=== PATIENT | male | born 1940 | race Caucasian/White ===

== ENCOUNTER → 2017-01-11 | Outpatient (CLI) | payer OTHER ==
--- NOTE | 2017-01-11 09:27 | MR ---
MRI of the Right Shoulder History: Severe shoulder pain. Technique: Axial proton density, oblique coronal, and sagittal T1 and T2 images were acquired. Findings: The supraspinatus tendon is completely torn distally and retracted to the subacromial space . There is moderate fatty atrophy of supraspinatus muscle. The subscapularis tendon is also completely torn and retracted, with moderate to advanced fatty atrop hy of subscapularis muscle. The long head biceps tendon is subluxed out of the bicipital groove into the anterior shoulder joint through the subscapularis defect. This tendon demonstrates marked thickening and tendinosis through t he intra-articular aspect. The superior labral attachment is also diseased with focal tendinopathy an d maceration with partial tear of the superior labrum at the biceps anchor. More posteriorly, fusiform infraspinatus tendinosis and fraying is present, without full-thickness de fect. Teres minor is intact. In addition to superior labral maceration, there is moderate chondral thinning along the superior asp ect of the humeral head and glenoid articular surface. There is also undercutting of the inferior lab rum from the 5 through 7 o'clock positions compatible with nondisplaced tear. No additional labral te ar identified. The acromioclavicular joint is moderately hypertrophic, without joint effusion or bone marrow edema. Impression: 1. Complete tear of the supraspinatus tendon with retraction and moderate muscular atrophy. 2. Complete tear of the subscapularis tendon with retraction and severe muscular atrophy. There is he rniation of a diseased long head biceps tendon through the subscapularis defect into the anterior garry ulder joint. 3. Fusiform infraspinatus tendinosis without full-thickness tear. 4. Degenerative maceration and fraying superior labrum. There is also a nondisplaced tear of the infe rior labrum from the 5 through 7 o'clock positions.
== END ==
LOC: FIMAGING 06:51
PROVIDERS: ATTEND Orthopaedic Surgery Sports Medicine
DX: M75.121 Complete rotator cuff tear or rupture of right shoulder, not specified as traumatic (principal); M25.511 Pain in right shoulder; M25.811 Other specified joint disorders, right shoulder

== ENCOUNTER → 2017-07-06 | Outpatient (CLI) | payer OTHER | LOC: FCPNEURO 23:06 | PROVIDERS: ATTEND Psychiatry & Neurology Sleep Medicine | DX: G47.33 Obstructive sleep apnea (adult) (pediatric) (principal); G47.31 Primary central sleep apnea ==

== ENCOUNTER → 2017-10-09 | Outpatient (CLI) | payer OTHER | LOC: FCPNEURO 20:00 | PROVIDERS: ATTEND Psychiatry & Neurology Sleep Medicine | DX: G47.31 Primary central sleep apnea (principal); G47.61 Periodic limb movement disorder ==

== ENCOUNTER → 2018-03-17 | Outpatient (CLI) | payer OTHER | LOC: FIMAGING 11:03 | PROVIDERS: ATTEND Orthopaedic Surgery | DX: Z01.818 Encounter for other preprocedural examination (principal); M17.11 Unilateral primary osteoarthritis, right knee ==

== ENCOUNTER 2018-04-06 09:30 | Observation (INO) | payer OTHER ==
--- NOTE | 2018-04-06 07:14 | PDHPUP ---
History & Physical Update H&P update statement: This history and physical update is based on an assessment of the patient which was completed after admission or registration (within 24 hours), but prior to the surgery/procedure. H&P update: H&P reviewed & patient examined, no change in patient's condition since H&P completed
[~2018-04-06 09:30] MED LIST: ROPIVACAINE 0.2% 80 MG, EPINEPHrine 0.2 MG, KETOROLAC TROMETHAMINE 30 MG in SYRINGE 0 ML IU ONE; TRANEXAMIC ACID 3,000 MG in NS (SYRINGE) 50 ML IRR ONE
[2018-04-06] MEDS ORDERED: TRANEXAMIC ACID 3,000 MG/50 ML BAG IRR ONE (09:53)
[2018-04-06] MEDS ORDERED: DEXAMETHASONE 4 MG/ML VIAL IVP ONE (11:04)
[2018-04-06] MEDS ORDERED: FAMOTIDINE 20 MG TAB PO ONE (11:04)
[2018-04-06] MEDS ORDERED: ceFAZolin 2 GM/SWFI 2 GM/20 ML SYR IVP ONE (11:04)
[2018-04-06] MEDS ORDERED: ACETAMINOPHEN 325 MG TAB PO ONE (11:04)
[2018-04-06] MEDS ORDERED: LIDOCAINE 1% 2 ML INJ ID PRN (11:05)
[2018-04-06] MEDS ORDERED: LR 1,000 ML IV ONE (11:05)
[2018-04-06] MEDS ORDERED: MIDAZOLAM 2 MG/2 ML VIAL IVP ONE ×2 (11:19→13:03)
--- NOTE | 2018-04-06 13:04 | PDANEPAE ---
ANE Past Medical History - Cardiovascular History Hx Hypertension: Yes Hx Arrhythmias: No Hx Chest Pain: No Hx Coronary Artery / Peripheral Vascular Disease: No Hx CHF / Valvular Disease: No Hx Palpitations: No - Pulmonary History Hx COPD: No Hx Asthma/Reactive Airway Disease: No Hx Recent Upper Respiratory Infection: No Hx Oxygen in Use at Home: No Hx Sleep Apnea: No Sleep Apnea Screening Result - Last Documented: Positive - Neurologic History Hx Cerebrovascular Accident: No Hx Seizures: No Hx Dementia: No - Endocrine History Hx Diabetes: No - Renal History Hx Renal Disorders: No - Liver History Hx Hepatic Disorders: No - Neurological & Psychiatric Hx Hx Neurological and Psychiatric Disorders: No - Cancer History Hx Cancer: No - Congenital Disorder History Hx Congenital Disorders: No - GI History Hx Gastrointestinal Disorders: Yes Gastrointestinal History Comment: DIVERTICULITIS - Other Health History Other Health History: NEG - Chronic Pain History Chronic Pain: No - Surgical History Prior Surgeries: L ADÁN. NEREIDA SHOULDER. NEREIDA KNEES ANE Review of Systems Review of Systems: - Exercise capacity METS (RN): 4 METS ANE Patient History - Allergies Allergies/Adverse Reactions: Penicillins Allergy (Verified 07/15/16 09:31) Hives - Home Medications Home Medications: Lisinopril [Zestril 40 mg (*)] 40 mg PO DAILY18 05/15/13 [Last Taken 04/05/18 18 :00] Multivitamins [Multivitamin (*)] 1 each PO DAILY 05/15/13 [Last Taken 2 Weeks Ago ~03/23/18] Rosuvastatin Calcium [Crestor 20mg (*)] 20 mg PO DAILY18 05/15/13 [Last Taken 18:00] Cholecalciferol Vit D3 [Vitamin D3 (*)] 6,000 units PO DAILY 06/18/16 [Last Taken 2 Weeks Ago ~03/23/18] Aspirin EC [Aspirin EC 81 mg (*)] 162 mg PO DAILY 03/09/18 [Last Taken 1 Week Ago ~03/30/18] [place]-3 Fatty Acids [Fish Oil 1000 mg (*)] 1,000 mg PO DAILY 03/09/18 [Last Taken 2 Weeks Ago ~03/23/18] amLODIPine BESYLATE [Norvasc 2.5 mg (*)] 2.5 mg PO DAILY 03/09/18 [Last Taken 06:30] - NPO status NPO Since - Liquids (Date): 04/06/18 NPO Since - Liquids (Time): 09:30 NPO Since - Solids (Date): 04/05/18 NPO Since - Solids (Time): 18:30 - Anes Hx Anes Hx: no prior problems - Smoking Hx Smoking Status: Former smoker - Family Anes Hx Family Hx Anesthesia Complications: NEG ANE Labs/Vital Signs - Vital Signs Blood Pressure: 134/50 Heart Rate: 48 Respiratory Rate: 12 O2 Sat (%): 96 Height: 177.8 cm Weight: 83.915 kg ANE Physical Exam - Airway Mallampati Score: Class 2 Mouth exam: normal dental/mouth exam - Pulmonary Pulmonary: no respiratory distress, no rales or rhonchi, clear to auscultation - Cardiovascular Cardiovascular: regular rate and rhythym, no murmur, rub, or gallop - ASA Status ASA Status: II ANE Anesthesia Plan Anesthesia Plan: spinal Regional Anesthesia: adductor canal FNB
[2018-04-06] MEDS ORDERED: BUPIVACAINE 0.25% 30 ML SDV ONE (13:17)
[2018-04-06] MEDS ORDERED: PROPOFOL 200 MG/20 ML VIAL ONE ×2 (13:18→14:03)
[2018-04-06] MEDS ORDERED: fentaNYL 100 MCG/2 ML INJ ONE (13:18)
[2018-04-06] MEDS ORDERED: DEXAMETHASONE 4 MG/ML VIAL ONE ×2 (13:19)
[2018-04-06] MEDS ORDERED: epHEDrine SULFATE 10 MG/ML SYR ONE (13:42)
[2018-04-06] MEDS ORDERED: PHENYLEPHRINE HCL 100 MCG/ML SYR ONE (13:43)
[2018-04-06] MEDS ORDERED: GLYCOPYRROLATE 0.2 MG/1 ML VIAL ONE ×2 (13:45→13:49)
[2018-04-06] MEDS ORDERED: ACETAMINOPHEN 500 MG TAB PO PRN (14:06)
[2018-04-06] MEDS ORDERED: LR 500 ML IV PRN (14:06)
[2018-04-06] MEDS ORDERED: oxyCODONE IR 5 MG TAB PO PRN (14:06)
[2018-04-06] MEDS ORDERED: ONDANSETRON 4 MG/2 ML VIAL IVP PRN ×2 (14:06→14:51)
[2018-04-06] MEDS ORDERED: ENALAPRILAT DIHYDRATE 1.25 MG/ML VIAL IVP PRN (14:06)
[2018-04-06] MEDS ORDERED: NALOXONE HCL 0.4 MG/ML INJ IVP PRN (14:06)
[2018-04-06] MEDS ORDERED: fentaNYL 100 MCG/2 ML INJ IVP PRN (14:06)
[2018-04-06] MEDS ORDERED: ONDANSETRON DISINTEGRATING 4 MG TAB PO PRN (14:51)
[2018-04-06] MEDS ORDERED: LACTULOSE 20 GM/30 ML UDCUP PO PRN (14:51)
[2018-04-06] MEDS ORDERED: PROMETHAZINE HCL 25 MG/ML INJ IVP PRN (14:51)
[2018-04-06] MEDS ORDERED: BISACODYL 10 MG SUPP PR PRN (14:51)
[2018-04-06] MEDS ORDERED: diphenhydrAMINE 25 MG CAP PO PRN (14:51)
[2018-04-06] MEDS ORDERED: CYCLOBENZAPRINE 10 MG TAB PO PRN (14:51)
[2018-04-06] MEDS ORDERED: POLYETHYLENE GLYCOL 3350 17 GM PKT PO PRN (14:51)
[2018-04-06] MEDS ORDERED: PROMETHAZINE HCL 25 MG SUPPR PR PRN (14:51)
[2018-04-06] MEDS ORDERED: MAGNESIUM HYDROXIDE 30 ML UDCUP PO PRN (14:51)
[2018-04-06] MEDS ORDERED: METOCLOPRAMIDE 10 MG/2 ML VIAL IVP PRN (14:51)
[2018-04-06] MEDS ORDERED: TEMAZEPAM 15 MG CAP PO PRN (14:51)
[2018-04-06] MEDS ORDERED: DIPHENOXYLATE/ATROPINE LOMOTIL 1 TAB PO PRN (14:51)
--- NOTE | 2018-04-06 14:52 | POSTOPPROG ---
Post Op Note Date of Operation: 04/06/18 Surgeon: Karen Grove Drag Sawyer: olya grove Anesthesiologist: dr. benitez Anesthesia: Spinal, Other (Specify) (addcutor canal block) Pre-op Diagnosis: right knee OA Post-op Diagnosis: rihgt knee OA Indication: right knee pain Procedure: R TKA robot assisted Findings: severe knee OA Inf/Abcess present in the surg proc area at time of surgery?: No EBL: 50-100
--- NOTE | 2018-04-06 14:59 | POSTANESTH ---
Post Anesthetic Evaluation Cardiovascular Status: Normal, Stable, Similar to Pre-Op Cond Respiratory Status: Normal, Stable, Similar to Pre-op Cond. Level of Consciousness/Mental Status: Can Participate in Eval, Alert and Oriented Pain Control: Adequate, Prn Tx Ordered Nausea/Vomiting Control: Adequate, Prn Tx Ordered Complications Possibly Related to Anesthesia: None Noted (Rt adductor canal nerve block performed in PACU.)
[2018-04-06] MEDS ORDERED: LR 1,000 ML IV SCH (15:00)
[2018-04-06] MEDS ORDERED: LISINOPRIL 40 MG TAB PO SCH (18:00)
[2018-04-06] MEDS ORDERED: ROSUVASTATIN CALCIUM 20 MG TAB PO SCH (18:00)
[2018-04-06] MEDS: ACETAMINOPHEN 325 MG TAB PO SCH ×2 (18:39→23:58)
--- NOTE | 2018-04-06 19:29 | GOP ---
[f rep st] OPERATIVE REPORT DATE OF OPERATION: 04/06/2018 SURGEON: Niko Hayden MD SHARE DAIRY FARMER: SANKET Coelho. ANESTHESIA: Spinal. PREOPERATIVE DIAGNOSIS: Right knee osteoarthritis. POSTOPERATIVE DIAGNOSIS: Right knee osteoarthritis. PROCEDURE PERFORMED: Right total knee arthroplasty with computer navigation, robotic assist. FINDINGS: ESTIMATED BLOOD LOSS: 30 cc INDICATIONS: The patient is a 78-year-old male with severe and progressive pain and deformity of the right knee unresponsive to conservative care. The risks and benefits of surgical intervention were explained in detail. DESCRIPTION OF PROCEDURE: The patient was brought to the operative room and placed on the table in t he supine position. Spinal anesthesia was induced without difficulty. A pneumatic tourniquet was appl ied about the right proximal thigh, and the leg was prepped and draped in a sterile fashion. The leg ocasio was applied. After exsanguination by elevation the tourniquet was inflated to 250 mmHg. Incision was made anterior medial from the tibial tuberosity to a point 2 cm proximal to the superior pole of the patella. Medial parapatellar arthrotomy was carried out from the superior pole of the pa tella and posteriorly in line with the fibers of the Type II VMO. The medial collateral ligament was elevated and the infrapatellar fat pad was resected. The patella was everted and the articular surface was excised. A 38 mm patellar button was placed. Attention was turned first to the distal aspect of the femur. After exposure of the femur, 2 half pi ns were placed for fixation of the femoral array. In a similar fashion, 2 pins were placed anteromed ial on the tibia for fixation of the tibial array. External land marking and registration of the hip center was performed without difficulty. Internal femoral and tibial registration was carried out w ithout difficulty and the femoral and tibial checkpoints were placed and verified for accuracy. Attention was turned to the femur. The foot print for the size 5 femoral component was cut with the saw using the [employer] robotic system and verified for accuracy against the CT based plan. In a similar f ashion, the saw was used to cut the footprint for the size 6 tibial component using the [employer] system an d verified for accuracy against the CT based plan. The tibial articular surface was excised without d ifficulty, followed by the intercondylar box cut. The knee was extended and the remnants of the medial and lateral meniscus were excised. The posterior capsule was injected with ropivacaine, epinephrine and Toradol. A size 6 tibial tray was positioned . Trial reduction was then carried out. There was excellent range of motion, alignment, and stability using the 6 x 11 mm polyethylene. All trials were then removed. The joint was thoroughly irrigated and carefully dried. The press-fit c omponents were implanted. The permanent 11 mm polyethylene X3 was placed without difficulty. The tourniquet was deflated and all bleeders were coagulated. The wound was thoroughly irrigated and closed using interrupted sutures of 2-0 Vicryl for the joint capsule. The subcu was closed with 3-0 V icryl and the skin with 4-0 Monocryl. Dermabond and Steri-Strips were applied followed by a compress andrews dressing. The patient was then moved from the operating room to the recovery room in good conditi on, having tolerated the procedure well. PATHOLOGY: Severe medial and patellofemoral osteoarthritis. /[id number]/MODL
[2018-04-06] MEDS: oxyCODONE IR 5 MG TAB PO PRN (19:42)
[2018-04-06] MEDS ORDERED: ceFAZolin 2 GM/DEXTROSE 100 ML IV SCH (22:00)
[2018-04-06] MEDS: FAMOTIDINE 20 MG TAB PO SCH (22:17)
[2018-04-06] MEDS: ceFAZolin 2 GM/SWFI 2 GM/20 ML SYR IVP SCH (22:17)
[2018-04-06] MEDS: ASPIRIN 81 MG CHEWABLE TAB PO SCH (22:17)
[2018-04-06] MEDS: SENNOSIDES/DOCUSATE SODIUM TAB PO SCH (22:17)
--- NOTE | 2018-04-07 05:09 | CPEKG ---
Heart Rate: 40 RR Interval: 1500 P-R Interval: 224 QRSD Interval: 92 QT Interval: 488 QTC Interval: 398 P Dayhoit: 4 QRS Dayhoit: 35 T Wave Dayhoit: 19 EKG Severity - OTHERWISE NORMAL ECG - EKG Impression: SINUS BRADYCARDIA Electronically Signed By: Lauri Lam 07-Apr-2018 12:44:29
--- NOTE | 2018-04-07 05:27 | PDHOSCONS ---
History and Physical - Chief Complaint Bradycardia - History of Present Illness Contacted by Orthopedic service regarding bradycardia. Patient is asymptomatic and reports a long history of slow heart rate. He denies any history of prior cardiac issues aside from hypertension. He does not take any AV bakari blocking agents. He was admitted for R TKA and is currently denying symptoms. History Information - Allergies/Home Medication List Allergies/Adverse Reactions: Penicillins Allergy (Verified 07/15/16 09:31) Hives Home Medications: Lisinopril [Zestril 40 mg (*)] 40 mg PO DAILY18 05/15/13 [Last Taken 04/05/18 18 :00] Multivitamins [Multivitamin (*)] 1 each PO DAILY 05/15/13 [Last Taken 2 Weeks Ago ~03/23/18] Rosuvastatin Calcium [Crestor 20mg (*)] 20 mg PO DAILY18 05/15/13 [Last Taken 18:00] Cholecalciferol Vit D3 [Vitamin D3 (*)] 6,000 units PO DAILY 06/18/16 [Last Taken 2 Weeks Ago ~03/23/18] Aspirin EC [Aspirin EC 81 mg (*)] 162 mg PO DAILY 03/09/18 [Last Taken 1 Week Ago ~03/30/18] [place]-3 Fatty Acids [Fish Oil 1000 mg (*)] 1,000 mg PO DAILY 03/09/18 [Last Taken 2 Weeks Ago ~03/23/18] amLODIPine BESYLATE [Norvasc 2.5 mg (*)] 2.5 mg PO DAILY 03/09/18 [Last Taken 06:30] I have personally reviewed and updated: family history, medical history - Past Medical History arthritis, hypertension - Surgical History Additional surgical history: Knee and hip surgeries - Family History Additional family history: Denies family hx of arrhythmia - Social History Smoking Status: Former smoker Review of Systems Review of Systems: ROS: 10pt was reviewed & negative except for what was stated in HPI & below Physical Exam Physical Exam: Temp Pulse Resp BP Pulse Ox 36.4 C 47 L 18 135/57 H 95 04/07/18 03:54 04/07/18 03:54 04/06/18 23:31 04/07/18 03:54 04/07/18 03:54 Constitutional: no apparent distress, not in pain Eyes: PERRL, EOMI Ears, Nose, Mouth, Throat: moist mucous membranes, no oral mucosal ulcers Cardiovascular: regular rate and rhythym, no murmur, rub, or gallop Respiratory: no respiratory distress, no rales or rhonchi Gastrointestinal: normoactive bowel sounds, soft, non-tender abdomen Skin: warm, normal color Musculoskeletal: other (R knee in immobilizer) Neurologic: AAOx3, CN II-XII Intact Psychiatric: interacting appropriately, not anxious Lab Data & Imaging Review 04/07/18 04:45 04/07/18 04:45 Hgb 11.9 g/dL (13.7-17.5) L 04/07/18 04:45 Hct 35.3 % (40.0-51.0) L 04/07/18 04:45 Visualized and Interpreted EKG results: Yes EKG Interpretation: Positive for: other (Sinus bradycardia) Assessment & Plan Assessment: 78 yo M w/ post-op sinus bradycardia. Plan: 1. Sinus bradycardia - Hemodynamically stable with no concerning findings (AV block, sinus pauses) on ECG. Patient reports low heart rate at baseline. I suspect this is being exacerbated by pain medication in post-op state. - Monitor on telemetry - Limit opiates as able - Obtain STAT ECG if he becomes symptomatic - For now it is safe to continue current care Thank you for this consult, the hospitalist service will follow along with you.
[2018-04-07] MEDS: ceFAZolin 2 GM/SWFI 2 GM/20 ML SYR IVP SCH (05:33)
[2018-04-07] MEDS: ACETAMINOPHEN 325 MG TAB PO SCH (05:33)
[2018-04-07 08:13] VITALS: BP 148/69
[2018-04-07] MEDS: oxyCODONE IR 5 MG TAB PO PRN (08:43)
[2018-04-07] MEDS: FAMOTIDINE 20 MG TAB PO SCH (08:44)
[2018-04-07] MEDS: ASPIRIN 81 MG CHEWABLE TAB PO SCH (08:44)
[2018-04-07] MEDS: SENNOSIDES/DOCUSATE SODIUM TAB PO SCH (08:44)
--- NOTE | 2018-04-11 09:27 | GDS ---
[f rep st] DISCHARGE SUMMARY ADMISSION DIAGNOSIS: Right knee osteoarthritis. DISCHARGE DIAGNOSIS: Right knee osteoarthritis. PROCEDURE: Right total knee arthroplasty computer navigation with robotic assist. VTE PROPHYLAXIS: Recommend baby aspirin 81 mg twice daily for a month. BRIEF DESCRIPTION OF HOSPITAL STAY: Patient was admitted for an elective joint arthroplasty. The pa tricia tolerated the procedure well and has passed physical therapy. The patient was given appropriat e antibiotic prophylaxis and venous thromboembolism prophylaxis. The patient's pain was well control led on oral pain medication, patient was holding down food, and had urinated. Decision was made to d ischarge the patient. The patient was given post-operative prescriptions pre-operatively. PLAN: To follow up with Dr. Hayden at [facility] in 2 to 3 weeks. /[id number]/MODL
== END 2018-04-07 12:32 | disposition home or self-care (01) ==
LOC: F3N 10:53
PROVIDERS: ADMIT Orthopaedic Surgery; ATTEND Orthopaedic Surgery
PROC: 0SRC0J9 Replacement of Right Knee Joint with Synthetic Substitute, Cemented, Open Approach (ICD-10-PCS; principal; 2018-04-06 13:15)
PROC: 8E0Y0CZ Robotic Assisted Procedure of Lower Extremity, Open Approach (ICD-10-PCS; principal; 2018-04-06 13:15)
PROC: 3E0T3BZ Introduction of Anesthetic Agent into Peripheral Nerves and Plexi, Percutaneous Approach (ICD-10-PCS; principal; 2018-04-06 13:15)
DX: M17.11 Unilateral primary osteoarthritis, right knee (principal); R00.1 Bradycardia, unspecified; Z87.891 Personal history of nicotine dependence
CPT/HCPCS: 27447; 64450; 73560; 88311; 93005; 97116; 97161; 97165; C1776; G8978; G8979; G8980; G8987; G8988; G8989; J0171; J0690; J1100; J1885; J2250; J2370; J2704; J2795; J3010

== ENCOUNTER → 2018-08-04 | Outpatient (CLI) | payer OTHER ==
[~2018-08-04] MED LIST changes: +GADOBUTROL 10 ML VIAL IVP ONE; -ROPIVACAINE 0.2% 80 MG, EPINEPHrine 0.2 MG, KETOROLAC TROMETHAMINE 30 MG in SYRINGE 0 ML IU ONE; -TRANEXAMIC ACID 3,000 MG in NS (SYRINGE) 50 ML IRR ONE
== END ==
LOC: FIMAGING 14:52
PROVIDERS: ATTEND Otolaryngology
DX: H90.3 Sensorineural hearing loss, bilateral (principal); G31.9 Degenerative disease of nervous system, unspecified
CPT/HCPCS: 70553; A9585; 82565-PO

== ENCOUNTER → 2019-02-15 | Outpatient (CLI) | payer OTHER | LOC: EMCIMAGING 09:22 | PROVIDERS: ATTEND Internal Medicine Cardiovascular Disease | DX: I77.1 Stricture of artery (principal); R29.898 Other symptoms and signs involving the musculoskeletal system | CPT/HCPCS: 73206-PN ==

== ENCOUNTER → 2019-03-08 | Outpatient (CLI) | payer OTHER | LOC: BHFA 15:30 | PROVIDERS: ATTEND Internal Medicine Cardiovascular Disease | DX: R20.0 Anesthesia of skin (principal); I10 Essential (primary) hypertension ==